=== PATIENT | male | born 1930 | race Caucasian/White ===

== ENCOUNTER 2017-09-30 15:35 | Emergency (ER) | payer MEDICARE ==
[~2017-09-30] VITALS: Ht 167.6 cm; Wt 67.7 kg
[2017-09-30 16:00] LABS: BASOPHILS % (AUTO) 0.7 % (0-1); EOSINOPHILS # (AUTO) 0.1 X10'3 (0-0.9); EOSINOPHILS % (AUTO) 1.5 % (0-6); HEMATOCRIT 35.1 % (42.0-52.0); HEMOGLOBIN 11.7 g/dl (14.0-17.9); LYMPHOCYTES % (AUTO) 21.3 % (21-51); MEAN CORPUSCULAR HEMOGLOBIN 29.7 PG (27.0-31.0); MEAN CORPUSCULAR HGB CONC 33.3 % (33.0-36.5); MEAN CORPUSCULAR VOLUME 89.3 FL (78-98); MEAN PLATELET VOLUME 8.7 FL (7.4-10.4); MONOCYTES # (AUTO) 0.5 X10'3 (0-0.9); MONOCYTES % (AUTO) 11.1 % (2-12); NEUTROPHILS % (AUTO) 65.4 % (42-75); PLATELET COUNT 177 X10'3 (140-440); RED BLOOD COUNT 3.93 X10'6 (4.70-6.10); RED CELL DISTRIBUTION WIDTH 16.5 % (11.5-14.5); WHITE BLOOD COUNT 4.6 X10'3 (4.5-11.0)
[2017-09-30 16:10] LABS: PARTIAL THROMBOPLASTIN TIME 37 SECONDS (22-32); PROTHROMBIN TIME 29.4 SECONDS (9.0-12.0)
[2017-09-30 16:15] LABS: ALANINE AMINOTRANSFERASE 16 U/L (12-78); ALBUMIN 3.3 G/DL (3.4-5.0); ALBUMIN/GLOBULIN RATIO 0.9 (1.1-1.5); ALKALINE PHOSPHATASE 86 IU/L (46-116); ANION GAP 10 (8-16); ASPARTATE AMINO TRANSFERASE 16 U/L (10-37); BILIRUBIN,TOTAL 2.1 MG/DL (0.1-1.0); BLOOD UREA NITROGEN 26 MG/DL (7-18); BUN/CREATININE RATIO 13.5 (5.4-32.0); CALCIUM 9.3 MG/DL (8.5-10.1); CHLORIDE 105 MMOL/L (99-107); CREATININE 1.92 MG/DL (0.60-1.10); GLUCOSE 99 MG/DL (70-104); POTASSIUM 3.3 MMOL/L (3.5-5.1); SODIUM 144 MMOL/L (135-145); TOTAL CARBON DIOXIDE 29.3 MMOL/L (24-32); TOTAL PROTEIN 6.9 G/DL (6.4-8.2); eGFR 33 ML/MIN
[2017-09-30 16:18] LABS: TROPONIN I < 0.04 NG/ML (0.0-0.05)
[2017-09-30] MEDS ORDERED: potassium Cl 20 mEq SR tablet PO ONE (16:35)
[2017-09-30] MEDS ORDERED: normal saline 1000ml 1,000 ML IV ONE (16:35)
[2017-09-30] MEDS ORDERED: potassium Cl 10 mEq/100mL bag IV ONE (16:35)
[2017-09-30] MEDS ORDERED: potassium 10mEq/100ml NS w/LIDOcaine (10mg/bag) IV ONE (16:45)
[2017-09-30] MEDS: magnesium/D5W IVPB 100 ML IV SCH ×2 (17:17→18:17)
[2017-09-30 17:27] LABS: MAGNESIUM 2.2 MG/DL (1.5-2.4)
[2017-09-30] MEDS ORDERED: furosemide 10 MG/1 ML 10ml inj IV ONE (18:20)
[2017-09-30] MEDS ORDERED: POTA20TA19 PO (18:21)
[2017-09-30 18:47] LABS: CLARITY,URINE CLOUDY (Clear); COLOR,URINE YELLOW (Yellow); GLUCOSE, URINE NEGATIVE (Neg); KETONES,URINE NEGATIVE (Neg); LEUKOCYTE ESTERASE ,URINE MODERATE (Neg); NITRITES, URINE NEGATIVE (Neg); OCCULT BLOOD,URINE SMALL (Neg); PROTEIN,URINE NEGATIVE (Neg)
[2017-09-30 18:51] LABS: UA COLLECTION TYPE CLN CATCH MIDSTREAM
[2017-09-30 18:52] LABS: SQUAMOUS EPITHELIAL CELL,UR FEW /LPF (FEW)
[2017-09-30 18:53] LABS: BACTERIA,URINE 2+ /HPF (Neg); WBC CLUMPS,URINE MODERATE /HPF (NEGATIVE); WBC,URINE 20-30 /HPF (0-4)
[2017-09-30] MEDS ORDERED: NITR100C6 PO (20:19)
[2017-09-30 20:23] VITALS: BP 132/91
== END 2017-09-30 20:25 | disposition home or self-care (01) ==
LOC: ER 15:35
DX: E87.6 Hypokalemia (principal); I25.10 Atherosclerotic heart disease of native coronary artery without angina pectoris; I10 Essential (primary) hypertension; R79.1 Abnormal coagulation profile; Z91.040 Latex allergy status; Z88.8 Allergy status to other drugs, medicaments and biological substances; Z79.899 Other long term (current) drug therapy
CPT/HCPCS: 36415; 71045; 80053; 81001; 82948; 83735; 84484; 85025; 85610; 85730; 87077; 87088; 87186; 93005; 96365; 96366; 96368; 96375; 99285; J1940; J3480; J7030

== ENCOUNTER 2017-10-11 07:02 | Inpatient (IN) | payer MEDICARE ==
[~2017-10-11] VITALS: Ht 167.6 cm; Wt 63.6 kg
[~2017-10-11 07:02] MED LIST: NITR100C6 PO; POTA20TA19 PO
[2017-10-11 07:48] LABS: BASOPHILS % (AUTO) 0.5 % (0-1); EOSINOPHILS # (AUTO) 0.1 X10'3 (0-0.9); EOSINOPHILS % (AUTO) 1.7 % (0-6); HEMATOCRIT 33.9 % (42.0-52.0); HEMOGLOBIN 11.3 g/dl (14.0-17.9); LYMPHOCYTES % (AUTO) 20.2 % (21-51); MEAN CORPUSCULAR HEMOGLOBIN 29.2 PG (27.0-31.0); MEAN CORPUSCULAR HGB CONC 33.3 % (33.0-36.5); MEAN CORPUSCULAR VOLUME 87.8 FL (78-98); MEAN PLATELET VOLUME 8.6 FL (7.4-10.4); MONOCYTES # (AUTO) 0.6 X10'3 (0-0.9); MONOCYTES % (AUTO) 11.9 % (2-12); NEUTROPHILS # (AUTO) 3.1 X10'3 (1.8-7.7); NEUTROPHILS % (AUTO) 65.7 % (42-75); PLATELET COUNT 154 X10'3 (140-440); RED BLOOD COUNT 3.87 X10'6 (4.70-6.10); WHITE BLOOD COUNT 4.7 X10'3 (4.5-11.0)
[2017-10-11 08:03] LABS: PARTIAL THROMBOPLASTIN TIME 44 SECONDS (22-32); PROTHROMBIN TIME 46.1 SECONDS (9.0-12.0)
[2017-10-11 08:06] LABS: ALANINE AMINOTRANSFERASE 15 U/L (12-78); ALBUMIN/GLOBULIN RATIO 0.8 (1.1-1.5); ALKALINE PHOSPHATASE 80 IU/L (46-116); ANION GAP 12 (8-16); ASPARTATE AMINO TRANSFERASE 20 U/L (10-37); BILIRUBIN,TOTAL 1.6 MG/DL (0.1-1.0); BLOOD UREA NITROGEN 33 MG/DL (7-18); BUN/CREATININE RATIO 14.3 (5.4-32.0); CALCIUM 9.3 MG/DL (8.5-10.1); CHLORIDE 101 MMOL/L (99-107); GLUCOSE 92 MG/DL (70-104); INR 4.7 INR; MAGNESIUM 2.1 MG/DL (1.5-2.4); POTASSIUM 3.1 MMOL/L (3.5-5.1); SODIUM 138 MMOL/L (135-145); TOTAL PROTEIN 6.6 G/DL (6.4-8.2); eGFR 27 ML/MIN
[2017-10-11] MEDS ORDERED: dexamethasone 4mg tablet PO ONE (09:10)
[2017-10-11] MEDS ORDERED: ipratropium/albuterol 3ml nebule NEB ONE (09:10)
[2017-10-11] MEDS ORDERED: albuterol 2.5 MG/3 ML nebule NEB ONE (10:10)
[2017-10-11] MEDS ORDERED: CefTRIAXone 2gm/D5W 50ml 50 ML IV ONE (10:10)
[2017-10-11] MEDS ORDERED: azithromycin/NS 500mg/250ml 250 ML IV ONE ×2 (10:10→14:15)
[2017-10-11] MEDS ORDERED: LEVO500T2 PO (10:49)
[2017-10-11] MEDS ORDERED: FURO-150 PO (10:49)
[2017-10-11 13:03] LABS: CLARITY,URINE CLEAR (Clear); COLOR,URINE YELLOW (Yellow); GLUCOSE, URINE NEGATIVE (Neg); KETONES,URINE NEGATIVE (Neg); LEUKOCYTE ESTERASE ,URINE NEGATIVE (Neg); NITRITES, URINE NEGATIVE (Neg); OCCULT BLOOD,URINE NEGATIVE (Neg); PH,URINE 5.5 (4.8-8.0); PROTEIN,URINE NEGATIVE (Neg); UA COLLECTION TYPE URINAL; UROBILINOGEN,URINE 0.2 E.U/dL (0.2-1.0)
[2017-10-11] MEDS: normal saline 1000ml 1,000 ML IV SCH ×2 (14:13→17:25)
[2017-10-11] MEDS ORDERED: potassium Cl 20 mEq SR tablet PO PRN (14:15)
[2017-10-11] MEDS ORDERED: magnesium hydroxide 30ml (MOM) UD suspension PO PRN (14:15)
[2017-10-11] MEDS ORDERED: magnesium 4gm in 100ml NS 100 ML IV PRN (14:15)
[2017-10-11] MEDS ORDERED: bisacodyl 10mg suppository rectal RC PRN (14:15)
[2017-10-11] MEDS ORDERED: mag hydrox/Alum hydrox/simeth 30ml oral suspension PO PRN (14:15)
[2017-10-11] MEDS ORDERED: potassium Cl 40MEQ/NS 500ml 500 ML IV PRN ×2 (14:15)
[2017-10-11] MEDS ORDERED: acetaminophen 325mg tablet PO PRN ×2 (14:15)
[2017-10-11] MEDS ORDERED: ondansetron/PF 4mg/2ml inj IV PRN (14:15)
[2017-10-11] MEDS ORDERED: magnesium/D5W IVPB 50 ML IV PRN (14:15)
[2017-10-11] MEDS ORDERED: magnesium Cl slow-release 64mg tablet PO PRN (14:15)
[2017-10-11] MEDS: K and/or MAG REPLACEMENT MC SCH (14:24)
[2017-10-11] MEDS: ipratropium/albuterol 3ml nebule NEB SCH ×3 (16:20→23:34)
[2017-10-11 17:20] VITALS: BP 130/77
[2017-10-11] MEDS: methylPREDNISolone sod succ 125mg/2ml vial IV SCH (22:09)
[2017-10-11] MEDS: LORazepam 0.5 MG tablet PO PRN (22:09)
[2017-10-11] MEDS: furosemide 40mg tablet PO SCH (22:09)
[2017-10-12] MEDS: methylPREDNISolone sod succ 125mg/2ml vial IV SCH ×4 (03:17→20:23)
[2017-10-12] MEDS: ipratropium/albuterol 3ml nebule NEB SCH ×6 (03:57→23:13)
[2017-10-12] MEDS: normal saline 1000ml 1,000 ML IV SCH (05:28)
[2017-10-12 06:57] VITALS: BP 145/84
[2017-10-12] MEDS: furosemide 40mg tablet PO SCH (07:09)
[2017-10-12] MEDS: K and/or MAG REPLACEMENT MC SCH (07:09)
[2017-10-12 07:22] LABS: PROTHROMBIN TIME 48.5 SECONDS (9.0-12.0)
[2017-10-12] MEDS ORDERED: enoxaparin 40mg/0.4ml syringe SUBCUT SCH (08:00)
[2017-10-12 08:02] VITALS: BP 118/81
[2017-10-12] MEDS: CefTRIAXone/D5W-Rocephin 1gm 50 ML IV SCH (10:43)
[2017-10-12] MEDS ORDERED: WARF-55 PO ×2 (12:21)
[2017-10-12] MEDS ORDERED: ALB0.5UD IH (13:39)
[2017-10-12] MEDS ORDERED: CARV3.12 PO (13:39)
[2017-10-12] MEDS ORDERED: LOSA25TA96 PO (13:39)
[2017-10-12 15:34] VITALS: BP 135/75
[2017-10-12] MEDS ORDERED: albuterol 2.5 MG/3 ML nebule NEB PRN (17:20)
[2017-10-12] MEDS: azithromycin 250mg tablet PO SCH (17:56)
[2017-10-12 19:30] VITALS: BP 138/80
[2017-10-12] MEDS: carVEDilol 3.125mg tablet PO SCH ×2 (20:00→20:23)
[2017-10-12] MEDS: furosemide 40mg/4ml inj IV SCH (20:23)
[2017-10-12] MEDS: LORazepam 0.5 MG tablet PO PRN (21:41)
[2017-10-13] VITALS: BP 150/84
[2017-10-13] MEDS: methylPREDNISolone sod succ 125mg/2ml vial IV SCH ×4 (02:17→22:20)
[2017-10-13] MEDS: ipratropium/albuterol 3ml nebule NEB SCH ×3 (03:48→11:00)
[2017-10-13 07:03] LABS: BASOPHILS % (AUTO) 0 % (0-1); EOSINOPHILS % (AUTO) 0 % (0-6); HEMATOCRIT 32.8 % (42.0-52.0); HEMOGLOBIN 10.8 g/dl (14.0-17.9); LYMPHOCYTES # (AUTO) 0.6 X10'3 (1.1-4.8); LYMPHOCYTES % (AUTO) 5.9 % (21-51); MEAN CORPUSCULAR HEMOGLOBIN 29.2 PG (27.0-31.0); MEAN CORPUSCULAR HGB CONC 32.9 % (33.0-36.5); MEAN CORPUSCULAR VOLUME 88.5 FL (78-98); MEAN PLATELET VOLUME 9.8 FL (7.4-10.4); MONOCYTES # (AUTO) 0.3 X10'3 (0-0.9); MONOCYTES % (AUTO) 3.2 % (2-12); NEUTROPHILS # (AUTO) 8.7 X10'3 (1.8-7.7); NEUTROPHILS % (AUTO) 90.9 % (42-75); PLATELET COUNT 142 X10'3 (140-440); RED BLOOD COUNT 3.71 X10'6 (4.70-6.10); RED CELL DISTRIBUTION WIDTH 17.3 % (11.5-14.5); WHITE BLOOD COUNT 9.6 X10'3 (4.5-11.0)
[2017-10-13 07:49] LABS: ALANINE AMINOTRANSFERASE 18 U/L (12-78); ALBUMIN 2.7 G/DL (3.4-5.0); ALBUMIN/GLOBULIN RATIO 0.8 (1.1-1.5); ALKALINE PHOSPHATASE 66 IU/L (46-116); ANION GAP 15 (8-16); ASPARTATE AMINO TRANSFERASE 34 U/L (10-37); BLOOD UREA NITROGEN 33 MG/DL (7-18); BUN/CREATININE RATIO 19.9 (5.4-32.0); CALCIUM 9.4 MG/DL (8.5-10.1); CHLORIDE 103 MMOL/L (99-107); CREATININE 1.66 MG/DL (0.60-1.10); GLUCOSE 131 MG/DL (70-104); PHOSPHORUS 3.4 MG/DL (2.3-4.5); POTASSIUM 3.8 MMOL/L (3.5-5.1); SODIUM 140 MMOL/L (135-145); TOTAL PROTEIN 6.2 G/DL (6.4-8.2); eGFR 40 ML/MIN
[2017-10-13 07:55] LABS: INR 5.9 INR
[2017-10-13 08:00] VITALS: BP 142/73
[2017-10-13] MEDS: carVEDilol 3.125mg tablet PO SCH ×3 (08:00→22:13)
[2017-10-13] MEDS: K and/or MAG REPLACEMENT MC SCH (08:00)
[2017-10-13] MEDS: lisinopril 5mg tablet PO SCH (08:10)
[2017-10-13] MEDS: losartan 25mg tablet PO SCH (08:11)
[2017-10-13] MEDS: furosemide 40mg/4ml inj IV SCH ×2 (08:13→22:14)
[2017-10-13] MEDS: CefTRIAXone/D5W-Rocephin 1gm 50 ML IV SCH (08:13)
[2017-10-13] MEDS: azithromycin 250mg tablet PO SCH (08:13)
[2017-10-13 12:02] VITALS: BP 124/72
[2017-10-13 19:00] VITALS: BP 130/69
[2017-10-13] MEDS: LORazepam 0.5 MG tablet PO PRN (22:12)
[2017-10-13] MEDS: lactobacillus rhamnosus 10,000 MMU CELLS/CAPSULE PO SCH (22:13)
[2017-10-14] VITALS: BP 110/59
[2017-10-14] MEDS: methylPREDNISolone sod succ 125mg/2ml vial IV SCH ×4 (03:11→20:04)
[2017-10-14 05:37] LABS: BASOPHILS % (AUTO) 0 % (0-1); EOSINOPHILS % (AUTO) 0 % (0-6); HEMATOCRIT 31.2 % (42.0-52.0); HEMOGLOBIN 10.3 g/dl (14.0-17.9); LYMPHOCYTES # (AUTO) 0.4 X10'3 (1.1-4.8); MEAN CORPUSCULAR HEMOGLOBIN 29.1 PG (27.0-31.0); MEAN CORPUSCULAR HGB CONC 32.8 % (33.0-36.5); MEAN CORPUSCULAR VOLUME 88.7 FL (78-98); MEAN PLATELET VOLUME 9.1 FL (7.4-10.4); MONOCYTES # (AUTO) 0.2 X10'3 (0-0.9); MONOCYTES % (AUTO) 3.1 % (2-12); NEUTROPHILS # (AUTO) 7.4 X10'3 (1.8-7.7); NEUTROPHILS % (AUTO) 91.9 % (42-75); PLATELET COUNT 130 X10'3 (140-440); RED BLOOD COUNT 3.52 X10'6 (4.70-6.10); RED CELL DISTRIBUTION WIDTH 16.8 % (11.5-14.5)
[2017-10-14 06:06] LABS: PROTHROMBIN TIME 42.1 SECONDS (9.0-12.0)
[2017-10-14 06:17] LABS: ALANINE AMINOTRANSFERASE 17 U/L (12-78); ALBUMIN 2.7 G/DL (3.4-5.0); ALBUMIN/GLOBULIN RATIO 0.8 (1.1-1.5); ALKALINE PHOSPHATASE 81 IU/L (46-116); ANION GAP 11 (8-16); ASPARTATE AMINO TRANSFERASE 23 U/L (10-37); BILIRUBIN,TOTAL 0.9 MG/DL (0.1-1.0); BLOOD UREA NITROGEN 38 MG/DL (7-18); BUN/CREATININE RATIO 23.3 (5.4-32.0); CHLORIDE 102 MMOL/L (99-107); CREATININE 1.63 MG/DL (0.60-1.10); GLUCOSE 125 MG/DL (70-104); SODIUM 138 MMOL/L (135-145); TOTAL CARBON DIOXIDE 25.3 MMOL/L (24-32); TOTAL PROTEIN 5.9 G/DL (6.4-8.2); eGFR 40 ML/MIN
[2017-10-14 06:47] LABS: POTASSIUM 2.9 MMOL/L (3.5-5.1)
[2017-10-14 06:48] LABS: INR 4.3 INR
[2017-10-14 07:37] VITALS: BP 106/55
[2017-10-14] MEDS: K and/or MAG REPLACEMENT MC SCH (08:00)
[2017-10-14] MEDS: furosemide 40mg/4ml inj IV SCH ×2 (08:04→21:15)
[2017-10-14] MEDS: lisinopril 5mg tablet PO SCH (08:04)
[2017-10-14] MEDS: losartan 25mg tablet PO SCH (08:04)
[2017-10-14] MEDS: carVEDilol 3.125mg tablet PO SCH ×2 (08:04→20:04)
[2017-10-14] MEDS: azithromycin 250mg tablet PO SCH (08:05)
[2017-10-14] MEDS: lactobacillus rhamnosus 10,000 MMU CELLS/CAPSULE PO SCH ×2 (08:05→20:04)
[2017-10-14] MEDS: CefTRIAXone/D5W-Rocephin 1gm 50 ML IV SCH (08:05)
[2017-10-14] MEDS: potassium Cl 20 mEq SR tablet PO PRN ×2 (08:06→12:11)
[2017-10-14] MEDS ORDERED: ipratropium/albuterol 3ml nebule NEB PRN (11:00)
[2017-10-14 11:59] VITALS: BP 125/72
[2017-10-14] MEDS ORDERED: magnesium 4gm in 100ml NS 100 ML IV PRN (14:55)
[2017-10-14] MEDS ORDERED: potassium Cl 40MEQ/NS 500ml 500 ML IV PRN ×2 (14:55)
[2017-10-14] MEDS ORDERED: magnesium Cl slow-release 64mg tablet PO PRN (14:55)
[2017-10-14] MEDS ORDERED: potassium Cl 20 mEq SR tablet PO PRN ×2 (14:55)
[2017-10-14] MEDS ORDERED: magnesium/D5W IVPB 100 ML IV PRN (14:55)
[2017-10-14 19:00] VITALS: BP 120/65
[2017-10-14] MEDS: LORazepam 0.5 MG tablet PO PRN (22:31)
[2017-10-15] VITALS: BP 125/74
[2017-10-15 04:57] LABS: BASOPHILS % (AUTO) 0 % (0-1); EOSINOPHILS % (AUTO) 0 % (0-6); HEMATOCRIT 31.1 % (42.0-52.0); HEMOGLOBIN 10.4 g/dl (14.0-17.9); LYMPHOCYTES # (AUTO) 0.4 X10'3 (1.1-4.8); MEAN CORPUSCULAR HEMOGLOBIN 29.4 PG (27.0-31.0); MEAN CORPUSCULAR HGB CONC 33.3 % (33.0-36.5); MEAN CORPUSCULAR VOLUME 88.3 FL (78-98); MEAN PLATELET VOLUME 8.9 FL (7.4-10.4); MONOCYTES # (AUTO) 0.3 X10'3 (0-0.9); MONOCYTES % (AUTO) 4.3 % (2-12); NEUTROPHILS # (AUTO) 6.4 X10'3 (1.8-7.7); NEUTROPHILS % (AUTO) 89.7 % (42-75); PLATELET COUNT 120 X10'3 (140-440); RED BLOOD COUNT 3.52 X10'6 (4.70-6.10); RED CELL DISTRIBUTION WIDTH 16.8 % (11.5-14.5); WHITE BLOOD COUNT 7.1 X10'3 (4.5-11.0)
[2017-10-15 05:06] LABS: PROTHROMBIN TIME 29.8 SECONDS (9.0-12.0)
[2017-10-15 05:28] LABS: ALANINE AMINOTRANSFERASE 26 U/L (12-78); ALBUMIN 2.7 G/DL (3.4-5.0); ALBUMIN/GLOBULIN RATIO 0.8 (1.1-1.5); ALKALINE PHOSPHATASE 80 IU/L (46-116); ANION GAP 8 (8-16); ASPARTATE AMINO TRANSFERASE 29 U/L (10-37); BLOOD UREA NITROGEN 42 MG/DL (7-18); BUN/CREATININE RATIO 26.4 (5.4-32.0); CALCIUM 9.4 MG/DL (8.5-10.1); CHLORIDE 104 MMOL/L (99-107); CREATININE 1.59 MG/DL (0.60-1.10); GLUCOSE 131 MG/DL (70-104); MAGNESIUM 2.1 MG/DL (1.5-2.4); PHOSPHORUS 2.9 MG/DL (2.3-4.5); POTASSIUM 3.8 MMOL/L (3.5-5.1); SODIUM 139 MMOL/L (135-145); TOTAL CARBON DIOXIDE 26.7 MMOL/L (24-32); TOTAL PROTEIN 5.9 G/DL (6.4-8.2); eGFR 42 ML/MIN
[2017-10-15 07:17] VITALS: BP 124/70
[2017-10-15] MEDS: furosemide 40mg/4ml inj IV SCH (07:45)
[2017-10-15] MEDS: CefTRIAXone/D5W-Rocephin 1gm 50 ML IV SCH (07:45)
[2017-10-15] MEDS: carVEDilol 3.125mg tablet PO SCH (07:45)
[2017-10-15] MEDS: losartan 25mg tablet PO SCH (07:46)
[2017-10-15] MEDS: lisinopril 5mg tablet PO SCH (07:46)
[2017-10-15] MEDS: methylPREDNISolone sod succ 125mg/2ml vial IV SCH (07:46)
[2017-10-15] MEDS: lactobacillus rhamnosus 10,000 MMU CELLS/CAPSULE PO SCH (07:46)
[2017-10-15] MEDS: azithromycin 250mg tablet PO SCH (07:46)
[2017-10-15] MEDS: K and/or MAG REPLACEMENT MC SCH (08:00)
[2017-10-15] MEDS ORDERED: PRED20TA PO (09:14)
[2017-10-15] MEDS ORDERED: LACT1CAP26 PO (09:14)
[2017-10-15 12:35] VITALS: BP 125/70
== END 2017-10-15 13:17 | disposition home or self-care (01) | DRG 682 ==
LOC: ER 07:02 → ED HOLD 14:13 → SUR 3N 16:42
PROVIDERS: ADMIT Family Medicine; ATTEND Family Medicine
DX: N17.9 Acute kidney failure, unspecified (principal); J96.90 Respiratory failure, unspecified, unspecified whether with hypoxia or hypercapnia; I50.23 Acute on chronic systolic (congestive) heart failure; I13.0 Hypertensive heart and chronic kidney disease with heart failure and stage 1 through stage 4 chronic kidney disease, or unspecified chronic kidney disease; J44.1 Chronic obstructive pulmonary disease with (acute) exacerbation; J44.0 Chronic obstructive pulmonary disease with (acute) lower respiratory infection; D68.9 Coagulation defect, unspecified; J20.9 Acute bronchitis, unspecified; I48.91 Unspecified atrial fibrillation; E87.6 Hypokalemia; D64.9 Anemia, unspecified; I25.10 Atherosclerotic heart disease of native coronary artery without angina pectoris; N18.3 Chronic kidney disease, stage 3 (moderate); Z66 Do not resuscitate; Z95.810 Presence of automatic (implantable) cardiac defibrillator; Z88.5 Allergy status to narcotic agent; Z88.1 Allergy status to other antibiotic agents; Z91.040 Latex allergy status; Z79.01 Long term (current) use of anticoagulants; Z87.891 Personal history of nicotine dependence; Z82.49 Family history of ischemic heart disease and other diseases of the circulatory system
CPT/HCPCS: 36415; 71045; 80053; 81003; 83605; 83735; 84100; 84132; 84484; 85025; 85610; 85730; 87040; 87070; 93005; 93306; 94640; 94760; 96365; 96366; 96368; 97116; 97162; 97530; 99285; A6258; J0456; J0696; J1940; J2930; J3480; J7030; J8540

== ENCOUNTER 2018-03-09 13:56 | Inpatient (IN) | payer MEDICARE ==
[~2018-03-09] VITALS: Ht 167.6 cm; Wt 72.0 kg
[~2018-03-09 13:56] MED LIST changes: +ALB0.5UD IH; +CARV3.12 PO; +FURO-150 PO; +LACT1CAP26 PO; +LOSA25TA96 PO; -NITR100C6 PO; -POTA20TA19 PO; +WARF-55 PO
[2018-03-09] MEDS ORDERED: furosemide 10 MG/1 ML 10ml inj IV ONE (15:55)
[2018-03-09 16:53] LABS: BASOPHILS % (AUTO) 0.8 % (0-1); EOSINOPHILS % (AUTO) 0.4 % (0-6); HEMATOCRIT 35.8 % (42.0-52.0); HEMOGLOBIN 11.3 g/dl (14.0-17.9); LYMPHOCYTES # (AUTO) 1.2 X10'3 (1.1-4.8); LYMPHOCYTES % (AUTO) 29.4 % (21-51); MEAN CORPUSCULAR HGB CONC 31.6 % (33.0-36.5); MEAN CORPUSCULAR VOLUME 88.4 FL (78-98); MONOCYTES # (AUTO) 0.5 X10'3 (0-0.9); MONOCYTES % (AUTO) 13.5 % (2-12); NEUTROPHILS # (AUTO) 2.2 X10'3 (1.8-7.7); NEUTROPHILS % (AUTO) 55.9 % (42-75); PLATELET COUNT 195 X10'3 (140-440); RED BLOOD COUNT 4.04 X10'6 (4.70-6.10); RED CELL DISTRIBUTION WIDTH 19.5 % (11.5-14.5)
[2018-03-09 17:08] LABS: ALANINE AMINOTRANSFERASE 25 U/L (12-78); ALBUMIN 3.1 G/DL (3.4-5.0); ALKALINE PHOSPHATASE 80 IU/L (46-116); ANION GAP 11 (8-16); ASPARTATE AMINO TRANSFERASE 41 U/L (10-37); BILIRUBIN,TOTAL 2.5 MG/DL (0.1-1.0); BLOOD UREA NITROGEN 37 MG/DL (7-18); BUN/CREATININE RATIO 15.8 (5.4-32.0); CALCIUM 9.7 MG/DL (8.5-10.1); CHLORIDE 103 MMOL/L (99-107); CREATININE 2.34 MG/DL (0.60-1.10); GLUCOSE 87 MG/DL (70-104); POTASSIUM 4.2 MMOL/L (3.5-5.1); SODIUM 141 MMOL/L (135-145); TOTAL CARBON DIOXIDE 26.6 MMOL/L (24-32); TOTAL PROTEIN 6.3 G/DL (6.4-8.2); eGFR 27 ML/MIN
[2018-03-09 17:18] LABS: INR 3.2 INR; PROTHROMBIN TIME 30.6 SECONDS (9.0-12.0)
[2018-03-09 17:19] LABS: PARTIAL THROMBOPLASTIN TIME 38 SECONDS (22-32)
[2018-03-09] MEDS ORDERED: acetaminophen 325mg tablet PO PRN (17:50)
[2018-03-09] MEDS ORDERED: ondansetron/PF 4mg/2ml inj IV PRN (17:50)
[2018-03-09] MEDS ORDERED: mag hydrox/Alum hydrox/simeth 30ml oral suspension PO PRN (17:50)
[2018-03-09] MEDS ORDERED: magnesium hydroxide 30ml (MOM) UD suspension PO PRN (17:50)
[2018-03-09] MEDS ORDERED: LORA0.5T PO (17:54)
[2018-03-09] MEDS ORDERED: ATOR10TA87 PO (17:54)
[2018-03-09] MEDS ORDERED: ASPI-1265 PO (17:54)
[2018-03-09] MEDS ORDERED: PANT-47 PO (17:54)
[2018-03-09] MEDS ORDERED: LORazepam 0.5 MG tablet PO PRN (18:00)
[2018-03-09] MEDS ORDERED: albuterol 2.5 mg/0.5ml nebule NEB PRN (18:00)
[2018-03-09] MEDS ORDERED: heparin, porcine 5000 units/ml vial SQ SCH (20:00)
[2018-03-09] MEDS: furosemide 10 MG/1 ML 10ml inj IV SCH (20:00)
[2018-03-09] MEDS ORDERED: atorvastatin 10mg tablet PO SCH (21:00)
[2018-03-09 22:05] VITALS: BP 138/66
[2018-03-09 22:30] VITALS: BP 133/62
[2018-03-10 02:00] VITALS: BP 124/70
[2018-03-10 05:15] LABS: BASOPHILS % (AUTO) 0.8 % (0-1); EOSINOPHILS # (AUTO) 0.1 X10'3 (0-0.9); EOSINOPHILS % (AUTO) 1.2 % (0-6); HEMATOCRIT 33.9 % (42.0-52.0); HEMOGLOBIN 10.8 g/dl (14.0-17.9); LYMPHOCYTES # (AUTO) 1.1 X10'3 (1.1-4.8); MEAN CORPUSCULAR HGB CONC 31.8 % (33.0-36.5); MEAN CORPUSCULAR VOLUME 87.9 FL (78-98); MEAN PLATELET VOLUME 9.5 FL (7.4-10.4); MONOCYTES # (AUTO) 0.6 X10'3 (0-0.9); MONOCYTES % (AUTO) 12.1 % (2-12); NEUTROPHILS # (AUTO) 2.9 X10'3 (1.8-7.7); NEUTROPHILS % (AUTO) 61.9 % (42-75); PLATELET COUNT 173 X10'3 (140-440); RED BLOOD COUNT 3.85 X10'6 (4.70-6.10); RED CELL DISTRIBUTION WIDTH 18.8 % (11.5-14.5); WHITE BLOOD COUNT 4.7 X10'3 (4.5-11.0)
[2018-03-10 05:28] LABS: ANION GAP 11 (8-16); BLOOD UREA NITROGEN 43 MG/DL (7-18); BUN/CREATININE RATIO 18.5 (5.4-32.0); CHLORIDE 105 MMOL/L (99-107); CREATININE 2.32 MG/DL (0.60-1.10); GLUCOSE 92 MG/DL (70-104); POTASSIUM 3.9 MMOL/L (3.5-5.1); SODIUM 142 MMOL/L (135-145); TOTAL CARBON DIOXIDE 26.3 MMOL/L (24-32); eGFR 27 ML/MIN
[2018-03-10 05:38] LABS: INR 2.7 INR; PROTHROMBIN TIME 25.6 SECONDS (9.0-12.0)
[2018-03-10 06:00] VITALS: BP 111/68
[2018-03-10 06:32] LABS: ANISOCYTOSIS 2+; LARGE PLATELETS FEW; PLATELET ESTIMATE NORMAL
[2018-03-10 06:33] LABS: HYPOCHROMASIA 1+
[2018-03-10] MEDS: furosemide 10 MG/1 ML 10ml inj IV SCH (07:45)
[2018-03-10] MEDS ORDERED: pantoprazole 40mg Tablet.DR PO SCH (08:00)
[2018-03-10] MEDS ORDERED: aspirin 81mg tab.chew PO SCH (08:00)
[2018-03-10] MEDS ORDERED: losartan 25mg tablet PO SCH (08:00)
[2018-03-10] MEDS ORDERED: CARV3.122 PO (10:56)
[2018-03-10 11:00] VITALS: BP 122/80
[2018-03-10] MEDS ORDERED: warfarin 2.5mg tablet PO SCH (21:00)
[2018-03-11] MEDS ORDERED: warfarin 5mg tablet PO SCH (21:00)
== END 2018-03-10 14:18 | disposition home or self-care (01) | DRG 291 ==
LOC: ER 13:56 → ED HOLD 17:48 → CMPBEDREQ 21:02 → PCU 3S 21:02
PROVIDERS: ADMIT Family Medicine; ATTEND Family Medicine
DX: I13.0 Hypertensive heart and chronic kidney disease with heart failure and stage 1 through stage 4 chronic kidney disease, or unspecified chronic kidney disease (principal); I50.23 Acute on chronic systolic (congestive) heart failure; E78.5 Hyperlipidemia, unspecified; I25.10 Atherosclerotic heart disease of native coronary artery without angina pectoris; Z66 Do not resuscitate; I48.2 Chronic atrial fibrillation; J44.9 Chronic obstructive pulmonary disease, unspecified; N18.9 Chronic kidney disease, unspecified; Z88.5 Allergy status to narcotic agent; Z88.8 Allergy status to other drugs, medicaments and biological substances; Z91.040 Latex allergy status; Z79.01 Long term (current) use of anticoagulants; Z79.899 Other long term (current) drug therapy; Z79.82 Long term (current) use of aspirin; Z85.46 Personal history of malignant neoplasm of prostate; Z87.440 Personal history of urinary (tract) infections
CPT/HCPCS: 36415; 71045; 80048; 80053; 83880; 84484; 85025; 85610; 85730; 87070; 93005; 94760; 96374; 99285; G0378; J1644; J1940; J7611

== ENCOUNTER 2018-03-19 09:41 | Inpatient (IN) | payer MEDICARE, OTHER ==
[~2018-03-19] VITALS: Ht 167.6 cm; Wt 69.0 kg
[~2018-03-19 09:41] MED LIST changes: +ASPI-1265 PO; +ATOR10TA87 PO; -CARV3.12 PO; +CARV3.122 PO; -LACT1CAP26 PO; +LORA0.5T PO; +PANT-47 PO
[2018-03-19 10:31] LABS: BASOPHILS % (AUTO) 0.7 % (0-1); EOSINOPHILS # (AUTO) 0.1 X10'3 (0-0.9); EOSINOPHILS % (AUTO) 2.2 % (0-6); HEMATOCRIT 35.7 % (42.0-52.0); HEMOGLOBIN 11.4 g/dl (14.0-17.9); LYMPHOCYTES % (AUTO) 19.7 % (21-51); MEAN CORPUSCULAR HEMOGLOBIN 27.9 PG (27.0-31.0); MEAN CORPUSCULAR VOLUME 87.1 FL (78-98); MEAN PLATELET VOLUME 9.2 FL (7.4-10.4); MONOCYTES # (AUTO) 0.4 X10'3 (0-0.9); MONOCYTES % (AUTO) 8.2 % (2-12); NEUTROPHILS # (AUTO) 3.4 X10'3 (1.8-7.7); NEUTROPHILS % (AUTO) 69.2 % (42-75); PLATELET COUNT 182 X10'3 (140-440); RED BLOOD COUNT 4.09 X10'6 (4.70-6.10); RED CELL DISTRIBUTION WIDTH 19.5 % (11.5-14.5); WHITE BLOOD COUNT 4.9 X10'3 (4.5-11.0)
[2018-03-19 10:45] LABS: PARTIAL THROMBOPLASTIN TIME 43 SECONDS (22-32); PROTHROMBIN TIME 44.2 SECONDS (9.0-12.0)
[2018-03-19 10:51] LABS: INR 4.7 INR
[2018-03-19] MEDS ORDERED: ipratropium/albuterol 3ml nebule NEB ONE (11:00)
[2018-03-19 11:07] LABS: ALANINE AMINOTRANSFERASE 24 U/L (12-78); ALBUMIN 3.2 G/DL (3.4-5.0); ALBUMIN/GLOBULIN RATIO 0.9 (1.1-1.5); ALKALINE PHOSPHATASE 76 IU/L (46-116); ANION GAP 12 (8-16); ASPARTATE AMINO TRANSFERASE 35 U/L (10-37); BILIRUBIN,TOTAL 2.7 MG/DL (0.1-1.0); BLOOD UREA NITROGEN 36 MG/DL (7-18); CALCIUM 9.8 MG/DL (8.5-10.1); CHLORIDE 104 MMOL/L (99-107); CREATININE 2.25 MG/DL (0.60-1.10); GLUCOSE 84 MG/DL (70-104); POTASSIUM 3.5 MMOL/L (3.5-5.1); SODIUM 142 MMOL/L (135-145); TOTAL CARBON DIOXIDE 26.2 MMOL/L (24-32); TOTAL PROTEIN 6.6 G/DL (6.4-8.2); eGFR 28 ML/MIN
[2018-03-19 11:10] LABS: MAGNESIUM 2.5 MG/DL (1.5-2.4)
[2018-03-19] MEDS ORDERED: normal saline 1000ML IV soln IVB ONE (11:15)
[2018-03-19] MEDS ORDERED: acetaminophen 325mg tablet PO PRN (11:20)
[2018-03-19] MEDS ORDERED: magnesium hydroxide 30ml (MOM) UD suspension PO PRN (11:20)
[2018-03-19] MEDS ORDERED: potassium Cl 40MEQ/NS 500ml 500 ML IV PRN ×2 (11:20)
[2018-03-19] MEDS ORDERED: potassium Cl 20 mEq SR tablet PO PRN ×2 (11:20)
[2018-03-19] MEDS ORDERED: magnesium 4gm in 100ml NS 100 ML IV PRN (11:20)
[2018-03-19] MEDS ORDERED: ondansetron/PF 4mg/2ml inj IV PRN (11:20)
[2018-03-19] MEDS ORDERED: mag hydrox/Alum hydrox/simeth 30ml oral suspension PO PRN (11:20)
[2018-03-19] MEDS ORDERED: magnesium Cl slow-release 64mg tablet PO PRN (11:20)
[2018-03-19] MEDS ORDERED: COU5T PO (11:39)
[2018-03-19] MEDS ORDERED: COU1T PO (11:39)
[2018-03-19] MEDS ORDERED: METO-539 PO (11:39)
[2018-03-19] MEDS ORDERED: CEFU500T66 PO (11:39)
[2018-03-19] MEDS ORDERED: FINA5TAB11 PO (11:40)
[2018-03-19] MEDS ORDERED: CHOL10002 PO (12:11)
[2018-03-19] MEDS ORDERED: LOSA25TA96 PO (12:11)
[2018-03-19] MEDS: azithromycin/NS 500mg/250ml 250 ML IV SCH (13:14)
[2018-03-19 16:45] VITALS: BP 122/71
[2018-03-19 18:15] VITALS: BP 128/68
[2018-03-19] MEDS: metoprolol tartrate 12.5mg (1/2 tablet) PO SCH (20:39)
[2018-03-19] MEDS ORDERED: atorvastatin 10mg tablet PO SCH (21:00)
[2018-03-19] MEDS ORDERED: albuterol 2.5 MG/3 ML nebule ONE (21:03)
[2018-03-19] MEDS: LORazepam 0.5 MG tablet PO PRN (21:59)
[2018-03-19 23:00] VITALS: BP 132/91
[2018-03-20 02:40] VITALS: BP 136/76
[2018-03-20 06:00] VITALS: BP 133/76
[2018-03-20 06:13] LABS: ALANINE AMINOTRANSFERASE 23 U/L (12-78); ALBUMIN 3.2 G/DL (3.4-5.0); ALKALINE PHOSPHATASE 73 IU/L (46-116); ANION GAP 13 (8-16); ASPARTATE AMINO TRANSFERASE 37 U/L (10-37); BASOPHILS % (AUTO) 0.5 % (0-1); BILIRUBIN,TOTAL 2.8 MG/DL (0.1-1.0); BLOOD UREA NITROGEN 37 MG/DL (7-18); BUN/CREATININE RATIO 16.4 (5.4-32.0); CALCIUM 9.9 MG/DL (8.5-10.1); CHLORIDE 106 MMOL/L (99-107); CREATININE 2.26 MG/DL (0.60-1.10); EOSINOPHILS # (AUTO) 0.1 X10'3 (0-0.9); EOSINOPHILS % (AUTO) 2.2 % (0-6); GLUCOSE 82 MG/DL (70-104); HEMATOCRIT 35.6 % (42.0-52.0); HEMOGLOBIN 11.4 g/dl (14.0-17.9); LYMPHOCYTES # (AUTO) 1.2 X10'3 (1.1-4.8); LYMPHOCYTES % (AUTO) 23.7 % (21-51); MAGNESIUM 2.5 MG/DL (1.5-2.4); MEAN CORPUSCULAR HEMOGLOBIN 27.9 PG (27.0-31.0); MEAN CORPUSCULAR VOLUME 87.3 FL (78-98); MEAN PLATELET VOLUME 9.3 FL (7.4-10.4); MONOCYTES # (AUTO) 0.5 X10'3 (0-0.9); MONOCYTES % (AUTO) 9.3 % (2-12); NEUTROPHILS # (AUTO) 3.4 X10'3 (1.8-7.7); NEUTROPHILS % (AUTO) 64.3 % (42-75); PLATELET COUNT 177 X10'3 (140-440); POTASSIUM 4.1 MMOL/L (3.5-5.1); RED BLOOD COUNT 4.08 X10'6 (4.70-6.10); RED CELL DISTRIBUTION WIDTH 19.4 % (11.5-14.5); SODIUM 142 MMOL/L (135-145); TOTAL CARBON DIOXIDE 23.4 MMOL/L (24-32); TOTAL PROTEIN 6.4 G/DL (6.4-8.2); WHITE BLOOD COUNT 5.3 X10'3 (4.5-11.0); eGFR 28 ML/MIN
[2018-03-20 06:16] LABS: PROTHROMBIN TIME 46.6 SECONDS (9.0-12.0)
[2018-03-20 07:37] LABS: ANISOCYTOSIS 2+; BURR CELLS 1+; ELLIPTOCYTES 1+; PLATELET ESTIMATE NORMAL
[2018-03-20] MEDS: finasteride 5mg tablet PO SCH (07:55)
[2018-03-20] MEDS: aspirin 81mg tab.chew PO SCH (07:56)
[2018-03-20] MEDS: losartan 25mg tablet PO SCH (07:56)
[2018-03-20] MEDS: metoprolol tartrate 12.5mg (1/2 tablet) PO SCH ×2 (07:56→20:30)
[2018-03-20] MEDS ORDERED: CefTRIAXone/D5W-Rocephin 1gm 50 ML IV SCH (08:00)
[2018-03-20] MEDS ORDERED: pantoprazole 40mg Tablet.DR PO SCH (08:00)
[2018-03-20] MEDS ORDERED: K and/or MAG REPLACEMENT MC SCH (08:00)
[2018-03-20] MEDS ORDERED: vitamin D (cholecalciferol) 1,000 unit tablet PO SCH (08:00)
[2018-03-20] MEDS: azithromycin/NS 500mg/250ml 250 ML IV SCH (08:52)
[2018-03-20 11:00] VITALS: BP 128/72
[2018-03-20] MEDS: LORazepam 0.5 MG tablet PO PRN ×2 (13:32→23:06)
[2018-03-20 15:00] VITALS: BP 132/76
[2018-03-20] MEDS: furosemide 40mg/4ml inj IV SCH (17:44)
[2018-03-20 18:00] VITALS: BP 106/77
[2018-03-20] MEDS: albuterol 2.5 MG/3 ML nebule NEB PRN (20:04)
[2018-03-20 22:00] VITALS: BP 129/70
[2018-03-21 02:00] VITALS: BP 123/74
[2018-03-21 07:02] VITALS: BP 105/68
[2018-03-21] MEDS ORDERED: azithromycin 250mg tablet PO SCH (08:00)
[2018-03-21] MEDS: furosemide 40mg/4ml inj IV SCH (08:10)
[2018-03-21] MEDS: losartan 25mg tablet PO SCH (08:11)
[2018-03-21] MEDS: aspirin 81mg tab.chew PO SCH (08:11)
[2018-03-21] MEDS: metoprolol tartrate 12.5mg (1/2 tablet) PO SCH ×2 (08:11→19:03)
[2018-03-21] MEDS: finasteride 5mg tablet PO SCH (08:17)
[2018-03-21] MEDS: albuterol 2.5 MG/3 ML nebule NEB PRN (09:40)
[2018-03-21 11:00] VITALS: BP 130/71
[2018-03-21 15:00] VITALS: BP 126/90
[2018-03-21 18:35] VITALS: BP 130/92
[2018-03-21] MEDS: LORazepam 0.5 MG tablet PO PRN (22:38)
[2018-03-21 22:40] VITALS: BP 130/74
[2018-03-22 02:53] VITALS: BP 139/82
[2018-03-22 06:56] VITALS: BP 133/78
[2018-03-22] MEDS: losartan 25mg tablet PO SCH (08:28)
[2018-03-22] MEDS: aspirin 81mg tab.chew PO SCH (08:28)
[2018-03-22 08:29] VITALS: BP_SYST 133
[2018-03-22] MEDS: metoprolol tartrate 12.5mg (1/2 tablet) PO SCH (08:29)
[2018-03-22] MEDS: finasteride 5mg tablet PO SCH (08:30)
[2018-03-22] MEDS: albuterol 2.5 MG/3 ML nebule NEB PRN (08:41)
[2018-03-22] MEDS ORDERED: furosemide 40mg tablet PO ONE (09:05)
[2018-03-23] MEDS ORDERED: furosemide 40mg tablet PO SCH (08:00)
== END 2018-03-22 11:25 | disposition hospice, home (50) | DRG 193 ==
LOC: ER 09:41 → ED HOLD 11:17 → EDBEDREQ 15:52 → PCU 3S 16:30
PROVIDERS: ADMIT Internal Medicine; ATTEND Family Medicine
DX: J18.9 Pneumonia, unspecified organism (principal); I50.23 Acute on chronic systolic (congestive) heart failure; I13.0 Hypertensive heart and chronic kidney disease with heart failure and stage 1 through stage 4 chronic kidney disease, or unspecified chronic kidney disease; D68.9 Coagulation defect, unspecified; E87.2 Acidosis; J44.0 Chronic obstructive pulmonary disease with (acute) lower respiratory infection; R17 Unspecified jaundice; E78.00 Pure hypercholesterolemia, unspecified; I25.5 Ischemic cardiomyopathy; F41.9 Anxiety disorder, unspecified; R74.8 Abnormal levels of other serum enzymes; E78.5 Hyperlipidemia, unspecified; E83.41 Hypermagnesemia; E86.0 Dehydration; I25.10 Atherosclerotic heart disease of native coronary artery without angina pectoris; I48.2 Chronic atrial fibrillation; N18.9 Chronic kidney disease, unspecified; Y95 Nosocomial condition; Z51.5 Encounter for palliative care; Z66 Do not resuscitate; Z95.0 Presence of cardiac pacemaker; I25.2 Old myocardial infarction; Z88.2 Allergy status to sulfonamides; Z88.8 Allergy status to other drugs, medicaments and biological substances; Z91.040 Latex allergy status; Z79.899 Other long term (current) drug therapy; Z79.01 Long term (current) use of anticoagulants; Z87.440 Personal history of urinary (tract) infections; Z85.46 Personal history of malignant neoplasm of prostate; Z87.891 Personal history of nicotine dependence
CPT/HCPCS: 36415; 71045; 80053; 83605; 83735; 83880; 84145; 84484; 85025; 85610; 85730; 87040; 87070; 93005; 93306; 94640; 94760; 97116; 97162; 97530; 99285; G0378; J0456; J0696; J1940